=== PATIENT | male | born 1990 | race Caucasian/White ===

== ENCOUNTER 2019-01-23 18:37 | Emergency (ER) | payer OTHER, SELFPAY ==
[2019-01-23 18:39] VITALS: BP 139/78; PULSE 86; RESP 16; TEMP 36.2; O2SAT 98; BMI 36.2
--- NOTE | 2019-01-23 19:57 | ED.VISSUMM ---
- ER Visit Summary Date of Service: 01/23/19 Chief Complaint: Redness, pain drainage and affected vision right eye History of Present Illness: The patient is a 28 M who awoke this morning with redness and drainage from right eye. He has been rubbing the eye. He states he has difficulty opening the eye. He complains of light sensitivity and decreased vision. He does not wear glasses. He does not wear contacts. He is not seen by an sewer line photo inspector or business advisor. There is no family history of glaucoma. There is no history of trauma. Physical Examination: Vital signs noted and blood pressure slightly elevated 136/78. Unable to see the chart with right eye 20/20 left eye. The eyelid is edematous on the right. The sclera is injected on the right. The conjunctival is injected on the right. There is clear watery drainage noted right eye only. Pupil is equal round reactive. Extraocular muscles intact. There is photophobia to direct and consensual light. There is no preauricular lymphadenopathy. Slit-lamp exam was performed after eyes were anesthetized with tetracaine and stained with floor seen. No abnormality noted left eye. There is a significant abrasion noted central visual axis on the right most likely from rubbing. There are no dendritic lesions. There are no cells no the anterior chamber but the anterior chamber does not appear clear. Unable to see posterior chamber because of the significant abrasion. Test Results: Slit-lamp exam reveals significant abrasion most likely from patient rubbing eyes. Emergency Department Course and Treatment: Patient was treated with ciprofloxacin and home atropine in the department and vials were dispensed. He is referred to Dr. Berger who is on for ophthalmology Treatment Plan: Outpatient follow-up in 24-48 hours Disposition: Discharged home with father Impression: 1. Conjunctivitis acute right eye 2. Corneal abrasion right eye central visual axis 3. Iritis right eye This note was generated with [employer] dictation software. It may contain incorrect words, spelling, and punctuation that were not noted in review of the chart prior to signing ED Disposition - Plan for ED Patient: Disposition: Home or Assisted Living Instructions: ED Eye Injury Corneal Abrasion, ED Conjunctivitis Nonspecific, ED Iritis Referrals: Rivas Vasquez III, MD [Primary Care Provider] - Modesto Berger MD [STAFF PHYSICIAN] - 1 Day for another exam Additional Instructions: Call Dr. Modesto Berger's office in the morning for appointment to be seen either tomorrow January 24 or January 25. Instill 1 drop of ciprofloxacin ophthalmic solution every 4 hours while awake until seen by Dr. Berger. Instill 1 drop of home atropine right eye every 12 hours until seen by Dr. Gonsalez
[2019-01-23] MEDS: Fluorescein 1 MG STRIP 1 STRIP EACH EYE (20:00)
[2019-01-23] MEDS: Tetracaine 0.5% Ophthalmic Bottle 1 DRP EACH EYE (20:00)
--- NOTE | 2019-01-23 20:01 | ED.DCSUM_ITS ---
- ER Visit Summary Date of Service: 01/23/19 Chief Complaint: Redness, pain drainage and affected vision right eye History of Present Illness: The patient is a 28 M who awoke this morning with redness and drainage from right eye. He has been rubbing the eye. He states he has difficulty opening the eye. He complains of light sensitivity and decreased vision. He does not wear glasses. He does not wear contacts. He is not seen by an patrol mother or inspector wire rope. There is no family history of glaucoma. There is no history of trauma. Physical Examination: Vital signs noted and blood pressure slightly elevated 136/78. Unable to see the chart with right eye 20/20 left eye. The eyelid is edematous on the right. The sclera is injected on the right. The conjunctival is injected on the right. There is clear watery drainage noted right eye only. Pupil is equal round reactive. Extraocular muscles intact. There is photophobia to direct and consensual light. There is no preauricular lymphadenopathy. Slit-lamp exam was performed after eyes were anesthetized with tetracaine and stained with floor seen. No abnormality noted left eye. There is a significant abrasion noted central visual axis on the right most likely from rubbing. There are no dendritic lesions. There are no cells no the anterior chamber but the anterior chamber does not appear clear. Unable to see posterior chamber because of the significant abrasion. Test Results: Slit-lamp exam reveals significant abrasion most likely from patient rubbing eyes. Emergency Department Course and Treatment: Patient was treated with ciproflo xacin and home atropine in the department and vials were dispensed. He is referred to Dr. Berger who is on for ophthalmology Treatment Plan: Outpatient follow-up in 24-48 hours Disposition: Discharged home with father Impression: 1. Conjunctivitis acute right eye 2. Corneal abrasion right eye central visual axis 3. Iritis right eye This note was generated with [employer] dictation software. It may contain incorrect words, spelling, and punctuation that were not noted in review of the chart prior to signing ED Disposition - Plan for ED Patient: Disposition: Home or Assisted Living Instructions: ED Eye Injury Corneal Abrasion, ED Conjunctivitis Nonspecific, ED Iritis Referrals: Rivas Vasquez III, MD [Primary Care Provider] - Modesto Berger MD [STAFF PHYSICIAN] - 1 Day for another exam Additional Instructions: Call Dr. Modesto Berger's office in the morning for appointment to be seen either tomorrow January 24 or January 25. Instill 1 drop of ciprofloxacin ophthalmic solution every 4 hours while awake until seen by Dr. Berger. Instill 1 drop of home atropine right eye every 12 hours until seen by Dr. Gonsalez
[2019-01-23] MEDS: Ciprofloxacin 0.3% 2.5ml Bottle 2 DRP RIGHT EYE (20:36)
[2019-01-23] MEDS: Atropine Sulfate 1% 2 ml Bottle 1 DRP OPHTHALMIC (20:36)
[2019-01-23 20:37] VITALS: RESP 18; O2SAT 99
== END 2019-01-23 20:37 | disposition home or self-care (01) ==
PROVIDERS: Emergency Provider Emergency Medicine; Family Provider Family Medicine; PCP Family Medicine
DX: H10.31 Unspecified acute conjunctivitis, right eye (principal); H20.9 Unspecified iridocyclitis; S05.01XA Injury of conjunctiva and corneal abrasion without foreign body, right eye, initial encounter; X58.XXXA Exposure to other specified factors, initial encounter; Y93.84 Activity, sleeping; Y92.003 Bedroom of unspecified non-institutional (private) residence as the place of occurrence of the external cause; Y99.8 Other external cause status
CPT/HCPCS: 99282